=== PATIENT | male | born 1990 | race Caucasian/White ===

== ENCOUNTER 2019-08-11 00:36 | Emergency (ER) | payer BC ==
[~2019-08-11] VITALS: Ht 172.7 cm; Wt 86.2 kg
[2019-08-11 00:44] VITALS: BP 124/72
--- NOTE | 2019-08-11 00:51 | NUR ---
PT AMBULATED TO BED 3.
--- NOTE | 2019-08-11 00:52 | NUR ---
29 YO M BIB SELF PRESENTS TO ED C/O RECTAL BLEEDING X 2 EPISODES TODAY WHILE GOING TO THE [facility] TODAY. PT REPORTS ANAL ITCHING AND BRIGHT RED BLOOD WHILE WIPING. REPORTS HAVING SIMILAR ISSUE ONCE BEFORE BUT WAS NOT DX WITH HEMORRHOIDS. ALSO C/O 5/10 BURNING EPIGASTRIC PAIN OFF AND ON FOR "A WHILE". PT HAS HX OF GERD BUT RAN OUT OF OMPREZOLE RX. PMH-- GERD RX-- TYLENOL @ 1800
--- NOTE | 2019-08-11 01:27 | NUR ---
Dr. Sanderson examining patient.
[2019-08-11 01:55] VITALS: BP 124/72
--- NOTE | 2019-08-11 01:55 | NUR ---
Patient discharged with v/s stable. Written and verbal after care instructions given and explained. Patient alert, oriented and verbalized understanding of instructions. Ambulatory with steady gait. All questions addressed prior to discharge. ID band removed. Patient advised to follow up with PMD. Rx of Miralax, hyrdocortisone rectal suppository, protonix given. Patient educated on indication of medication including possible reaction and side effects. Opportunity to ask questions provided and answered.
== END 2019-08-11 01:55 | disposition home or self-care (01) ==
LOC: EDSEX 00:36 → MED 00:36
DX: K64.9 Unspecified hemorrhoids (principal); K21.9 Gastro-esophageal reflux disease without esophagitis
CPT/HCPCS: 99283